=== PATIENT | male | born 1995 | race African-American/Black ===

== ENCOUNTER 2022-02-21 11:07 | Emergency (ER) | payer BC ==
[~2022-02-21] VITALS: Ht 162.6 cm; Wt 68.0 kg
[2022-02-21 11:25] VITALS: BP 123/70
== END 2022-02-21 15:05 | disposition left against medical advice (07) ==
LOC: ER 11:07
DX: Z53.21 Procedure and treatment not carried out due to patient leaving prior to being seen by health care provider (principal)